=== PATIENT | female | born 1980 | race African-American/Black ===

== ENCOUNTER 2017-07-07 21:55 | Emergency (ER) | payer OTHER ==
[~2017-07-07] VITALS: Ht 170.2 cm; Wt 100.0 kg
[2017-07-07 22:00] VITALS: BP 141/79; PULSE 77; RESP 16; TEMP 97.5; O2SAT 100
[2017-07-07] MEDS ORDERED: KETOROLAC TROMETHAMINE 60 MG/2 ML (IM) VIAL IM ONE (22:30)
[2017-07-07] MEDS ORDERED: ORPHENADRINE INJ 60 MG/2 ML AMP IM ONE (22:30)
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
[2017-07-07] MEDS ORDERED: IBUP1TAB7 PO (23:04)
[2017-07-07] MEDS ORDERED: CYCL10TA PO (23:04)
== END 2017-07-07 23:39 | disposition home or self-care (01) ==
LOC: NEPD 21:55
DX: S46.912A Strain of unspecified muscle, fascia and tendon at shoulder and upper arm level, left arm, initial encounter (principal); V43.52XA Car driver injured in collision with other type car in traffic accident, initial encounter
CPT/HCPCS: 72040; 96372; 99283; J1885; J2360

== ENCOUNTER 2017-07-25 11:20 | Emergency (ER) | payer OTHER ==
[~2017-07-25 11:20] MED LIST: CYCL10TA PO; IBUP1TAB7 PO
[2017-07-25 11:23] VITALS: BP 164/102; PULSE 92; RESP 16; TEMP 97.8; O2SAT 99
--- NOTE | 2017-07-25 11:49 | PD ---
HPI Chief Complaint: Medical Clearance Time Seen by Provider: 11:38 Travel History International Travel<30 days: No Contact w/Intl Traveler<30days: No Traveled to known affect area: No History of Present Illness HPI 36-year-old -[place] female presents emergency department status post ingestion of 4 of her mom's phentermine 37.5 mg tabs. The patient thought they were her vitamins. He is now here after about 30 minutes postingestion with symptoms of anxiety and agitation. She states she called poison control and they said that she should come and be evaluated. She has no headache, nausea, vomiting, or chest pain. Her pulse rate is noted to be 92 in triage, her blood pressure slightly elevated as well. She has no known drug allergies. [facility] Past Surgical History Other Surgery: Yes (breast reduction) Social History Alcohol Use: No Tobacco Use: No Substance Use: No Allergies-Medications (Allergen,Severity, Reaction): Coded Allergies: No Known Allergies (Unverified , 07/07/17) Reported Meds & Prescriptions Reported Meds & Active Scripts Active Flexeril (Cyclobenzaprine HCl) 10 Mg Tab 10 Mg PO TID PRN Ibuprofen 800 Mg Tab 800 Mg PO Q6HR PRN Review of Systems Except as stated in HPI: all other systems reviewed are Neg General / Constitutional: No: Fever Eyes: No: Visual changes HENT: No: Headaches Cardiovascular: No: Chest Pain or Discomfort Respiratory: No: Shortness of Breath Gastrointestinal: No: Abdominal Pain Genitourinary: No: Dysuria Musculoskeletal: No: Pain Skin: No Rash Neurologic: No: Weakness Psychiatric: Positive: Anxiety, No: Depression Endocrine: No: Polydipsia Hematologic/Lymphatic: No: Easy Bruising Physical Exam Narrative GENERAL: Patient appears in no acute distress. SKIN: Warm and dry. Normal color. Normal turgor. HEAD: Atraumatic. Normocephalic. EYES: Pupils equal and round. No scleral icterus. No injection or drainage. ENT: No nasal bleeding or discharge. Mucous membranes pink and moist. Pharynx is clear. Airways patent NECK: Trachea midline. Supple and nontender CARDIOVASCULAR: Regular rate and rhythm. No murmurs gallops or rubs. RESPIRATORY: No accessory muscle use. Clear to auscultation. Breath sounds equal bilaterally. GASTROINTESTINAL: Abdomen soft, non-tender, nondistended. Hepatic and splenic margins not palpable. MUSCULOSKELETAL: Extremities without clubbing, cyanosis, or edema. No obvious deformities. NEUROLOGICAL: Awake and alert. No obvious cranial nerve deficits. Motor grossly within normal limits. Five out of 5 muscle strength in the arms and legs. Normal speech. PSYCHIATRIC: Appropriate mood and affect; insight and judgment normal. Data Data Last Documented VS Vital Signs Date Time Temp Pulse Resp B/P (MAP) Pulse Ox O2 Delivery O2 Flow Rate FiO2 07/25/17 12:23 81 144/69 (94) 07/25/17 12:23 99 07/25/17 11:23 97.8 16 Orders Orders Electrocardiogram (07/25/17 11:46) Basic Metabolic Panel (Bmp) (07/25/17 11:46) Complete Blood Count With Diff (07/25/17 11:46) Ecg Monitoring (07/25/17 11:46) Bilateral Bp Monitoring (07/25/17 11:46) Iv Access Insert/Monitor (07/25/17 11:46) Oximetry (07/25/17 11:46) Oxygen Administration (07/25/17 11:46) Sodium Chloride 0.9% Flush (Ns Flush) (07/25/17 12:00) Sodium Chlor 0.9% 1000 Ml Inj (Ns 1000 M (07/25/17 12:00) Lorazepam Inj (Ativan Inj) (07/25/17 12:00) Labs Laboratory Tests Test 07/25/17 12:00 White Blood Count 7.3 TH/MM3 Red Blood Count 4.32 MIL/MM3 Hemoglobin 11.1 GM/DL Hematocrit 34.9 % Mean Corpuscular Volume 80.9 FL Mean Corpuscular Hemoglobin 25.8 PG Mean Corpuscular Hemoglobin Concent 31.9 % Red Cell Distribution Width 15.8 % Platelet Count 418 TH/MM3 Mean Platelet Volume 8.6 FL Neutrophils (%) (Auto) 64.1 % Lymphocytes (%) (Auto) 25.3 % Monocytes (%) (Auto) 8.5 % Eosinophils (%) (Auto) 0.8 % Basophils (%) (Auto) 1.3 % Neutrophils # (Auto) 4.6 TH/MM3 Lymphocytes # (Auto) 1.8 TH/MM3 Monocytes # (Auto) 0.6 TH/MM3 Eosinophils # (Auto) 0.1 TH/MM3 Basophils # (Auto) 0.1 TH/MM3 CBC Comment DIFF FINAL Differential Comment Blood Urea Nitrogen 9 MG/DL Creatinine 0.86 MG/DL Random Glucose 82 MG/DL Calcium Level 8.6 MG/DL Sodium Level 141 MEQ/L Potassium Level 3.9 MEQ/L Chloride Level 107 MEQ/L Carbon Dioxide Level 24.9 MEQ/L Anion Gap 9 MEQ/L Estimat Glomerular Filtration Rate 91 ML/MIN MDM Medical Decision Making Medical Screen Exam Complete: Yes Emergency Medical Condition: Yes Differential Diagnosis Accidental ingestion of phentermine. Anxiety. Palpitations. Narrative Course Poison control was contacted and they recommended palliative care. Patient should have some basic labs including CBC and CMP. EKG is ordered. Patient is given 1000 mL of normal saline bolus as well as 1 mg lorazepam IV. Patient will be monitored here for at least 4 hours to assess any changes. EKG showed no significant findings with a normal sinus rhythm. CBC is unremarkable except for hemoglobin 11.1, hematocrit of 34.9. Chemistries are normal. Patient is reassessed at 1500 hrs. and feels normal. Vital signs are stable. Patient is felt to be medically stable for discharge at this time. Patient can return if symptoms recur as needed. Diagnosis Primary Impression: Ingestion, drug, inadvertent or accidental Qualified Codes: T50.901A - Poisoning by unspecified drugs, medicaments and biological substances, accidental (unintentional), initial encounter Referrals: Primary Care Physician Patient Instructions: General Instructions Additional Instructions: Patient is given 1000 mL of normal saline bolus as well as 1 mg lorazepam IV. Patient will be monitored here for at least 4 hours to assess any changes. EKG showed no significant findings with a normal sinus rhythm. CBC is unremarkable except for hemoglobin 11.1, hematocrit of 34.9. Chemistries are normal. Patient is reassessed at 1500 hrs. and feels normal. Vital signs are stable. Patient is felt to be medically stable for discharge at this time. Patient can return if symptoms recur as needed. Med/Other Pt SpecificInfo: No Meds Exist/No RX given Disposition: 01 DISCHARGE HOME Condition: Stable Elijah Roberts July 25, 2017 11:49
[2017-07-25] MEDS ORDERED: LORazepam 2 MG/ML VIAL IV PUSH ONE (12:00)
[2017-07-25] MEDS ORDERED: SODIUM CHLOR 0.9% 1000 ML INJ 1,000 ML IV ONE (12:00)
[2017-07-25] MEDS ORDERED: SODIUM CHLORIDE 0.9% FLUSH 10 ML FLUSH IVF PRN (12:00)
[2017-07-25 12:23] VITALS: BP 144/69; PULSE 81
[2017-07-25 13:04] LABS: AUTOMATED NEUTROPHIL # 4.6 TH/MM3 (1.8-7.7); BASOPHIL # 0.1 TH/MM3 (0-0.2); BASOPHIL % 1.3 % (0.0-2.0); EOSINOPHIL # 0.1 TH/MM3 (0-0.4); EOSINOPHIL % 0.8 % (0.0-4.0); HEMATOCRIT 34.9 % (35.0-46.0); HEMOGLOBIN 11.1 GM/DL (11.6-15.3); LYMPH % 25.3 % (9.0-44.0); LYMPHOCYTE # 1.8 TH/MM3 (1.0-4.8); MEAN CELL VOLUME 80.9 FL (80.0-100.0); MEAN CORPUSCULAR HEMOGLOBIN 25.8 PG (27.0-34.0); MEAN CORPUSCULAR HGB CONC 31.9 % (32.0-36.0); MEAN PLATELET VOLUME 8.6 FL (7.0-11.0); MONO % 8.5 % (0.0-8.0); MONOCYTE # 0.6 TH/MM3 (0-0.9); NEUT % 64.1 % (16.0-70.0); PLATELET COUNT 418 TH/MM3 (150-450); RED BLOOD COUNT 4.32 MIL/MM3 (4.00-5.30); RED CELL DISTRIBUTION WIDTH 15.8 % (11.6-17.2); WHITE BLOOD COUNT 7.3 TH/MM3 (4.0-11.0)
[2017-07-25 13:47] LABS: BICARBONATE 24.9 MEQ/L (21.0-32.0); CALCIUM 8.6 MG/DL (8.5-10.1); CREATININE 0.86 MG/DL (0.50-1.00)
[2017-07-25 15:09] VITALS: BP 147/89; PULSE 60
--- NOTE | 2017-07-27 08:31 | EKG ---
Date Performed: 07/25/2017 Time Performed: 12:15:36 PTAGE: 36 years EKG: Sinus rhythm NORMAL ECG NO PREVIOUS TRACING DOCTOR: Jorge Lopes Interpretating Date/Time 07/27/2017 08:19:50
== END 2017-07-25 16:21 | disposition home or self-care (01) ==
LOC: NEPD 11:20
DX: T50.5X1A Poisoning by appetite depressants, accidental (unintentional), initial encounter (principal)
CPT/HCPCS: 80048; 85025; 93005; 96374; 99284; J2060; J7030